=== PATIENT | female | born 1955 | race Caucasian/White ===

== ENCOUNTER → 2016-05-01 | Outpatient (CLI) | payer OTHER ==
[~2016-05-01] VITALS: Ht 160 cm; Wt 78.5 kg
[~2016-05-01] MED LIST: BENADRYL25 M2 PO; CRANBERRY FRUI425 MG PO; CRANBERRY1 CAP PO; EPA FISH OIL1000 MG PO; GARLIC100 MG PO; LEVOXYL0.075 MG PO; LEVOXYL0.088 MG; LEVOXYL0.088 MG PO; M2 CHROMIUM500 MCG PO; MASON NATURAL O1 SG1 PO; MULTIPLE VITAMI1 TA1 PO; NORCO 325 MG-51 TAB PO; PHENTERMINE15 MG PO; PRILOSEC10 MG PO; PROZAC 10MG10 MG PO; RITE AID CRANB425 MG PO; VITAMIN B COMPL1 T16 PO; WELLBUTRIN SR100 M1 PO; WELLBUTRIN XL300 M1 PO; ZYRTEC 10MG10 MG PO; [UNRECOGNIZED DRUG - OTHER] PO
[2016-05-01 13:49] VITALS: BP 135/79; PULSE 83
[2016-05-01 14:32] VITALS: BP 135/79; PULSE 83
== END ==
LOC: LIGHT 13:45
DX: E78.4 Other hyperlipidemia (principal); E03.8 Other specified hypothyroidism; E66.09 Other obesity due to excess calories; Z68.30 Body mass index [BMI] 30.0-30.9, adult; M15.8 Other polyosteoarthritis

== ENCOUNTER → 2016-06-26 | Outpatient (CLI) | payer OTHER ==
[~2016-06-26] VITALS: Ht 160 cm; Wt 75.5 kg
[2016-06-26 13:41] VITALS: BP 117/79; PULSE 76
[2016-07-02 15:19] VITALS: BP_SYST 160.02
== END ==
LOC: LIGHT 13:35
DX: E78.4 Other hyperlipidemia (principal); E03.8 Other specified hypothyroidism; E66.8 Other obesity; Z68.29 Body mass index [BMI] 29.0-29.9, adult

== ENCOUNTER → 2016-08-21 | Outpatient (CLI) | payer OTHER ==
[~2016-08-21] VITALS: Ht 160 cm; Wt 75.3 kg
[2016-08-21 13:30] VITALS: BP 131/72; PULSE 72
== END ==
LOC: LIGHT 13:20
DX: E78.5 Hyperlipidemia, unspecified (principal); E03.9 Hypothyroidism, unspecified; E66.9 Obesity, unspecified; Z68.29 Body mass index [BMI] 29.0-29.9, adult; M15.9 Polyosteoarthritis, unspecified

== ENCOUNTER → 2016-10-02 | Outpatient (CLI) | payer OTHER ==
[~2016-10-02] VITALS: Ht 160 cm; Wt 76.0 kg
[2016-10-02 13:31] VITALS: BP 98/67; PULSE 83
== END ==
LOC: LIGHT 12:10
DX: E78.5 Hyperlipidemia, unspecified (principal); E03.9 Hypothyroidism, unspecified; E66.9 Obesity, unspecified; Z68.29 Body mass index [BMI] 29.0-29.9, adult; Z71.3 Dietary counseling and surveillance; M15.9 Polyosteoarthritis, unspecified

== ENCOUNTER → 2016-12-04 | Outpatient (CLI) | payer OTHER ==
[~2016-12-04] VITALS: Ht 160 cm; Wt 75.7 kg
[2016-12-04 13:33] VITALS: BP 130/60; PULSE 72
== END ==
LOC: LIGHT 13:19
DX: E78.5 Hyperlipidemia, unspecified (principal); E03.9 Hypothyroidism, unspecified; E66.9 Obesity, unspecified; Z68.29 Body mass index [BMI] 29.0-29.9, adult; Z71.3 Dietary counseling and surveillance; M15.9 Polyosteoarthritis, unspecified

== ENCOUNTER → 2017-02-26 | Outpatient (CLI) | payer OTHER ==
[~2017-02-26] VITALS: Ht 160 cm; Wt 78.0 kg
[2017-02-26 13:40] VITALS: BP 134/82; PULSE 95
== END ==
LOC: LIGHT 10:12
DX: E78.5 Hyperlipidemia, unspecified (principal); E03.9 Hypothyroidism, unspecified; E66.9 Obesity, unspecified; Z68.30 Body mass index [BMI] 30.0-30.9, adult; Z71.3 Dietary counseling and surveillance; M15.9 Polyosteoarthritis, unspecified

== ENCOUNTER → 2017-03-25 | Outpatient (REF) ==
[2017-03-25 19:13] LABS: THYROID STIMULATING HORMONE 2.19 uIU/mL (0.465-4.680)
== END ==
LOC: ZLAB.WCH 18:13
PROVIDERS: Family Medicine
DX: Z01.89 Encounter for other specified special examinations (principal)

== ENCOUNTER → 2017-04-30 | Outpatient (CLI) | payer OTHER ==
[~2017-04-30] VITALS: Ht 160 cm; Wt 78.0 kg
[2017-04-30 14:16] VITALS: BP 122/72; PULSE 80
== END ==
LOC: LIGHT 13:55
DX: E78.5 Hyperlipidemia, unspecified (principal); E03.9 Hypothyroidism, unspecified; E66.9 Obesity, unspecified; Z68.30 Body mass index [BMI] 30.0-30.9, adult; Z71.3 Dietary counseling and surveillance; M15.9 Polyosteoarthritis, unspecified
CPT/HCPCS: G0463

== ENCOUNTER → 2017-06-25 | Outpatient (CLI) | payer OTHER ==
[~2017-06-25] VITALS: Ht 160 cm; Wt 80.1 kg
[2017-06-25 13:33] VITALS: BP 126/84; PULSE 79
== END ==
LOC: LIGHT 13:25
DX: E78.5 Hyperlipidemia, unspecified (principal); E03.9 Hypothyroidism, unspecified; E66.9 Obesity, unspecified; Z71.3 Dietary counseling and surveillance; M15.9 Polyosteoarthritis, unspecified
CPT/HCPCS: G0463

== ENCOUNTER → 2017-08-27 | Outpatient (CLI) | payer OTHER ==
[~2017-08-27] VITALS: Ht 160 cm; Wt 79.8 kg
[2017-08-27 13:35] VITALS: BP 130/90; PULSE 91
== END ==
LOC: LIGHT 13:21
DX: E78.5 Hyperlipidemia, unspecified (principal); E03.9 Hypothyroidism, unspecified; E66.9 Obesity, unspecified; Z68.31 Body mass index [BMI] 31.0-31.9, adult; Z71.3 Dietary counseling and surveillance; M15.9 Polyosteoarthritis, unspecified
CPT/HCPCS: G0463

== ENCOUNTER → 2017-10-29 | Outpatient (CLI) | payer OTHER ==
[~2017-10-29] VITALS: Ht 160 cm; Wt 81.2 kg
[2017-10-29 13:15] VITALS: BP 132/84; PULSE 86
== END ==
LOC: LIGHT 13:07
DX: E16.1 Other hypoglycemia (principal); E03.9 Hypothyroidism, unspecified; E66.9 Obesity, unspecified; Z68.31 Body mass index [BMI] 31.0-31.9, adult; Z71.3 Dietary counseling and surveillance; M15.9 Polyosteoarthritis, unspecified
CPT/HCPCS: G0463

== ENCOUNTER → 2018-03-04 | Outpatient (CLI) | payer OTHER ==
[~2018-03-04] VITALS: Ht 160 cm; Wt 77.1 kg
[~2018-03-04] MED LIST changes: +FISH OIL 1000MG1 CAP PO; +NORCO 325 MG-7.1 TAB PO; +OXYCODONE-ACETAMINOP PO; +PRILOSEC 20MG20 MG PO; +ROXICODONE 55 MG/TAB PO
[2018-03-04 13:18] VITALS: BP 130/80; PULSE 87
== END ==
LOC: LIGHT 12-31 13:27
DX: E78.5 Hyperlipidemia, unspecified (principal); E03.9 Hypothyroidism, unspecified; M15.9 Polyosteoarthritis, unspecified; E66.9 Obesity, unspecified; Z68.30 Body mass index [BMI] 30.0-30.9, adult; Z71.3 Dietary counseling and surveillance
CPT/HCPCS: G0463

== ENCOUNTER → 2018-04-03 | Outpatient (REF) ==
[2018-04-03 17:16] LABS: THYROID STIMULATING HORMONE 6.07 uIU/mL (0.465-4.680)
== END ==
LOC: ZLAB.WCH 16:24
PROVIDERS: Family Medicine
DX: Z01.89 Encounter for other specified special examinations (principal)

== ENCOUNTER → 2018-07-11 | Outpatient (REF) ==
[2018-07-11 18:23] LABS: THYROID STIMULATING HORMONE 1.14 uIU/mL (0.465-4.680)
== END ==
LOC: ZLAB.WCH 16:17
PROVIDERS: Family Medicine
DX: Z01.89 Encounter for other specified special examinations (principal)